=== PATIENT | female | born 1990 | race African-American/Black ===

== ENCOUNTER 2016-04-22 16:51 | Emergency (ER) | payer BC ==
[~2016-04-22] VITALS: Ht 157.5 cm; Wt 57.0 kg
[2016-04-22 16:59] VITALS: Ht 157.5 cm; Wt 57.0 kg
[2016-04-22] MEDS ORDERED: IBUPROFEN 600 MG TAB PO ONE (21:30)
--- NOTE | 2016-04-22 21:56 | RADRPT ---
PROCEDURE: XR Chest. CLINICAL INDICATION: Cough and fever. TECHNIQUE: Single frontal view. COMPARISON: None. FINDINGS: The lungs are clear. The heart size is normal. There is no pleural effusion. There is no pneumothorax. IMPRESSION: 1. Normal chest radiograph. RPTAT: QQ .Rosalino Singh MD, Date Time Electronically viewed and signed by .Rosalino Singh MD, on 04/22/2016 21:56 .R/
[2016-04-22] MEDS ORDERED: AMO500 PO (22:05)
[2016-04-22] MEDS ORDERED: NAPR-688 PO (22:05)
[2016-04-22] MEDS ORDERED: ALBU18HF INHALATION (22:06)
--- NOTE | 2016-04-22 22:16 | ERD ---
ER Documentation Chief Complaint Date/Time DATE: 04/22/16 TIME: 22:08 Chief Complaint COUGH,CHEST WALL PAIN HPI This 25-year-old female presents to ER with cough and pain with coughing along her lower ribs. Has had a runny nose and subjective fevers. He has still eat injuring [place] but is more tired than usual. No one also the family is sick. She is otherwise healthy ROS All systems reviewed and are negative except as per history of present illness. Medications Home Meds Active Scripts Albuterol Sulfate* (Ventolin HFA*) 18 Gm Hfa.aer.ad, 2 PUFF INHALATION Q4H, #1 INHALER Prov:SIMÓN AGGARWAL DO 04/22/16 Amoxicillin* (Amoxicillin*) 500 Mg Cap, 500 MG PO TID for 7 Days, CAP Prov:SIMÓN AGGARWAL DO 04/22/16 Naproxen* (Naproxen*) 500 Mg Tablet, 500 MG PO BID, #20 TAB Prov:SIMÓN AGGARWAL DO 04/22/16 Allergies Allergies: Coded Allergies: No Known Allergy (Unverified , 12/21/13) PMhx/Soc Medical and Surgical Hx: pt denies Medical Hx, pt denies Surgical Hx Hx Alcohol Use: No Hx Substance Use: No Hx Tobacco Use: No Smoking Status: Never smoker Physical Exam Vitals Vital Signs Date Time Temp Pulse Resp B/P Pulse Ox O2 Delivery O2 Flow Rate FiO2 04/22/16 16:59 100.6 90 18 110/61 98 Physical Exam Const: [] No distress Head: Atraumatic Eyes: Normal Conjunctiva ENT: Normal External Ears, Nose and Mouth. The nasal congestion, right tympanic membrane with erythema and dullness. Neck: Full range of motion..~ No meningismus. Resp: Clear to auscultation bilaterally Cardio: Regular rate and rhythm, no murmurs Results 24 hrs Current Medications Medications (Trade) Dose Ordered Sig/Manish Route PRN Reason Start Time Stop Time Status Last Admin Dose Admin Ibuprofen (Motrin) 600 mg ONCE ONCE PO 04/22/16 21:30 04/22/16 21:31 DC 04/22/16 21:40 Procedures/MDM 25-year-old female with upper respiratory infection likely acute bronchitis at this point. Chest x-ray is clear of any serious pneumonia. I doubt any serious bacterial infections this is meningitis as is not consistent with the patient's symptoms. Her discharge with amoxicillin as well as naproxen for pain and inflammation. A David giving her an albuterol inhaler in case she experiences any shortness of breath. Primary care follow-up in the next 2-3 days. Return Precautions given Chest x-ray interpretation: No acute process no infiltrate no pulmonary edema or pneumothorax no widened mediastinum no fracture Departure Diagnosis: Primary Impression: Acute bronchitis Condition: Stable Patient Instructions: Bronchitis, Antiobiotic Treatment (Adult) Additional Instructions: Call your primary care doctor TOMORROW for an appointment during the next 2-3 days.See the doctor sooner or return here if your condition worsens before your appointment time. SIMÓN AGGARWAL DO Apr 22, 2016 22:16
[2016-04-22 23:17] VITALS: PULSE 89; RESP 20; TEMP 98.4
== END 2016-04-22 23:10 | disposition home or self-care (01) ==
LOC: FTE 16:51
DX: J20.9 Acute bronchitis, unspecified (principal)
CPT/HCPCS: 71010; Z7502; Z7610